=== PATIENT | female | born 1980 | race Hispanic/Latino ===

== ENCOUNTER 2018-08-16 16:02 | Emergency (ER) | payer BC ==
[2018-08-16 16:08] VITALS: RESP 16; O2SAT 98; BMI 31.8
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
[2018-08-16 17:34] LABS: BASO % 0.2 % (0.0-2.0); EOS % 0.4 % (0.0-4.0); HEMOGLOBIN 14.7 g/dL (12.0-16.0); LYMPH # 1.8 K/uL (1.0-4.3); MEAN CELL VOLUME 93.1 fl (81.0-99.0); MEAN CORPUSCULAR HEMOGLOBIN 31.2 pg (27.0-31.0); MEAN CORPUSCULAR HGB CONC 33.6 g/dL (33.0-37.0); MEAN PLATELET VOLUME 7.6 fl (7.2-11.7); MONO # 0.9 K/uL (0.0-0.8); MONO % 7.7 % (0.0-10.0); NEUT # 9.4 K/uL (1.8-7.0); NEUT % 76.7 % (50.0-75.0); RBC 4.71 Mil/uL (3.80-5.20); WHITE BLOOD COUNT 12.2 K/uL (4.8-10.8)
[2018-08-16 18:12] LABS: ALB/GLOB RATIO 1.3 (1.0-2.1); ALBUMIN 4.7 g/dL (3.5-5.0); ALT/SGPT 20 U/L (9-52); AST/SGOT 54 U/L (14-36); BLOOD UREA NITROGEN 17 mg/dl (7-17); CALCIUM 9.4 mg/dL (8.4-10.2); GFR NON-AFRICAN AMERICAN > 60
[2018-08-16 18:36] LABS: BARBITURATES, UR NEGATIVE (NEGATIVE); BENZODIAZEPINES, UR NEGATIVE (NEGATIVE); OPIATES, UR NEGATIVE (NEGATIVE); PHENCYCLIDINE, UR NEGATIVE (NEGATIVE)
[2018-08-16 20:30] LABS: SQUAMOUS EPITHIAL 2 /hpf (0-5); URINE BACTERIA RARE (<OCC); URINE BILIRUBIN NEGATIVE (NEGATIVE); URINE BLOOD SMALL (NEGATIVE); URINE CLARITY CLEAR (Clear); URINE COLOR STRAW (YELLOW); URINE GLUCOSE (UA) NEG (NEGATIVE); URINE LEUKOCYTE ESTERASE NEG Leu/uL (Negative); URINE PROTEIN NEGATIVE (NEGATIVE); URINE UROBILINOGEN 0.2-1.0 mg/dL (0.2-1.0)
--- NOTE | 2018-08-17 02:54 | ED PDOC ---
- Laboratory Results Result Diagrams: 08/16/18 17:30 08/16/18 17:30 Lab Results: Total Bilirubin 0.8 mg/dl (0.2-1.3) 08/16/18 17:30 AST 54 U/L (14-36) H 08/16/18 17:30 ALT 20 U/L (9-52) 08/16/18 17:30 Alkaline Phosphatase 92 U/L (38-126) 08/16/18: Total Protein 8.2 G/DL (6.3-8.2) 08/16/18 17: Albumin 4.7 g/dL (3.5-5.0) 08/16/18: Globulin 3.5 gm/dL (2.2-3.9) 08/16/18: Albumin/Globulin Ratio 1.3 (1.0-2.1) 08/16/18 17:30 Urine Color Straw (YELLOW) 08/16/18 20:00 Urine Clarity Clear (Clear) 08/16/18 20:00 Urine pH 6.0 (5.0-8.0) 08/16/18 20:00 Ur Specific [place] 1.008 (1.003-1.030) 08/16/18 20:00 Urine Protein Negative mg/dL (NEGATIVE) 08/16/18 20:00 Urine Glucose (UA) Neg mg/dL (NEGATIVE) 08/16/18 20:00 Urine Ketones 20 mg/dL (NEGATIVE) 08/16/18 20:00 Urine Blood Small (NEGATIVE) 08/16/18 20:00 Urine Nitrate Negative (NEGATIVE) 08/16/18 20:00 Urine Bilirubin Negative (NEGATIVE) 08/16/18 20:00 Urine Urobilinogen 0.2-1.0 mg/dL (0.2-1.0) 08/16/18 20:00 Ur Leukocyte Esterase Neg Carol/uL (Negative) 08/16/18 20:00 Urine RBC (Auto) < 1 /hpf (0-3) 08/16/18 20:00 Urine Microscopic WBC < 1 /hpf (0-5) 08/16/18 20:00 Ur Squamous Epith Cells 2 /hpf (0-5) 08/16/18 20:00 Urine Bacteria Rare (<OCC) 08/16/18 20:00 Urine POC: Negative - ECG O2 Sat by Pulse Oximetry: 98 (RA) - Progress ED Course And Treament: Case endorsed to underwriter from Anurag ELIAS pending [facility] [place] 1:30 Patient sleeping; no distress 2:50 Notified by crisis that patient evaluated by [facility] [place] and does not meet criteria for commitment. Patient is cleared for discharge as per Dr. Quinonez Patient requires no further intervention in the ED and is stable for discharge at this time Disposition - Clinical Impression Clinical Impression: Cannabis use disorder, mild, abuse - POA Present On Arrival: None - Disposition Disposition: Routine/Home Disposition Time: 02:54 Condition: STABLE Instructions: Marijuana Use and Addiction
[2018-08-17 04:23] VITALS: BP 134/86; PULSE 81; TEMP 98.1
--- NOTE | 2018-08-17 09:04 | CARD ---
APPROVED REPORT Date of service: 08/16/2018 EKG Measurement Heart [id number] ID [id number] <Conclusion> Sinus rhythm with short ID Right axis deviation Abnormal ECG
--- NOTE | 2018-08-17 09:09 | RAD ---
Date of service: 08/16/2018 HISTORY: Routine COMPARISON: No prior. FINDINGS: LUNGS: The lungs are well inflated and clear. PLEURA: No pleural effusions or pneumothorax. CARDIOVASCULAR: The heart is normal in size. No aortic atherosclerotic calcifications present. OSSEOUS STRUCTURES: Within normal limits for the patient's age. VISUALIZED UPPER ABDOMEN: Normal. OTHER FINDINGS: None. IMPRESSION: No active pulmonary disease.
== END 2018-08-17 02:50 | disposition home or self-care (01) ==
LOC: H.ER 16:02
DX: F12.10 Cannabis abuse, uncomplicated (principal); F43.10 Post-traumatic stress disorder, unspecified
CPT/HCPCS: 71045; 80053; 81003; 81025; 84443; 85025; 93005; 99282; G0480

== ENCOUNTER 2018-08-17 22:10 | Emergency (ER) | payer BC ==
[2018-08-17 22:10] VITALS: BMI 31.8
[2018-08-17 22:47] VITALS: BP 138/88; PULSE 78; RESP 18; TEMP 98; O2SAT 100
[2018-08-18] MEDS ORDERED: Bacitracin 500 Units/gm Oint Foilpak UD TOP STA (01:45)
--- NOTE | 2018-08-18 01:53 | ED PDOC ---
Lower Extremity Pain/Injury Time Seen by Provider: 08/17/18 23:53 Chief Complaint (Nursing): Lower Extremity Problem/Injury Chief Complaint (Provider): Lower Extremity Problem/Injury History Per: Patient History/Exam Limitations: no limitations Onset/Duration Of Symptoms: Days Additional Complaint(s): 37 years old female presents to ER for evaluation of rash to bottom of feet for the past several days. Patient reports she has been walking on her feet for days. She reports she lives in [facility] and trying to find a home. Patient has nowhere to stay tonight and denies fever, sore throat or history of diabetes. PMD: None provided Past Medical History Reviewed: Historical Data, Nursing Documentation, Vital Signs Vital Signs: Last Vital Signs Temp 98 F 08/17/18 22:45 Pulse 78 08/17/18 22:45 Resp 18 08/17/18 22:45 BP 138/88 08/17/18 22:45 Pulse Ox 100 08/17/18 22:45 - Medical History PMH: Post Traumatic Stress Disorder Denies: Diabetes, Hepatitis, HIV, HTN, Seizures, Sexually Transmitted Disease - Surgical History Surgical History: No Surg Hx - Family History Family History: States: Unknown Family Hx - Immunization History Hx Tetanus Toxoid Vaccination: No Hx Influenza Vaccination: No - Home Medications Home Medications: Ambulatory Orders Medication Instructions Recorded Amphetamine Salt Combination 40 mg PO DAILY 08/16/18 [Adderall] - Allergies Allergies/Adverse Reactions: Allergies Allergy/AdvReac Type Severity Reaction Status Date / Time No Known Allergies Allergy Verified 08/17/18 22:45 Review of Systems ROS Statement: Except As Marked, All Systems Reviewed And Found Negative Constitutional: Negative for: Fever ENT: Negative for: Throat Pain Skin: Positive for: Rash (to bottom of feet bilaterally) Physical Exam - Reviewed Nursing Documentation Reviewed: Yes Vital Signs Reviewed: Yes - Physical Exam Appears: Positive for: Well, No Acute Distress Head Exam: Positive for: ATRAUMATIC, NORMOCEPHALIC Skin: Positive for: Normal Color, Warm, Dry Eye Exam: Positive for: Normal appearance, EOMI, PERRL ENT: Positive for: Normal ENT Inspection Pulses-Dorsalis Pedis (L): 2+ Pulses-Dorsalis Pedis (R): 2+ Extremity: Positive for: Other (Bilateral plantar surface of feet with intact vesicles. No surrounding erythema) Neurological/Psych: Positive for: Awake, Alert, Oriented (x3) - ECG O2 Sat by Pulse Oximetry: 100 (RA) Pulse Ox Interpretation: Normal Medical Decision Making Medical Decision Making: Time: 42 Initial Plan: --Bacitracin OINT 1 applic --Tylenol 325 PO Scribe Attestation: Documented by Virginie Hennessy, acting as a scribe for LYNDON Dickerson. Provider Scribe Attestation: All medical record entries made by the Scribe were at my direction and personally dictated by me. I have reviewed the chart and agree that the record accurately reflects my personal performance of the history, physical exam, medical decision making, and the department course for this patient. I have also personally directed, reviewed, and agree with the discharge instructions and disposition. Disposition - Clinical Impression Clinical Impression: Friction blister - Patient ED Disposition Is Patient to be Admitted: No - Disposition Disposition: Routine/Home Disposition Time: 01:00 Condition: STABLE Additional Instructions: RETURN TO ED IMMEDIATELY IF SYMPTOMS WORSEN FIDELINA VILLA, thank you for letting us take care of you today. Your provider was Arin Donald MD and you were treated for SWOLLEN FEET. The emergency medical care you received today was directed at your acute symptoms. If you were prescribed any medication, please fill it and take as directed. It may take several days for your symptoms to resolve. Return to the Emergency Department if your symptoms worsen, do not improve, or if you have any other problems. Please contact your doctor or call one of the physicians/clinics you have been referred to that are listed on the Patient Visit Information form that is included in your discharge packet. Bring any paperwork you were given at discharge with you along with any medications you are taking to your follow up visit. Our treatment cannot replace ongoing medical care by a primary care provider outside of the emergency department. Thank you for allowing the [facility] team to be part of your care today. If you had an X-Ray or CT scan: A Radiologist will review the ED reading if any change in treatment is needed we will contact you. If you had a blood, urine, or wound culture: It will take several days for the results, if any change in treatment is needed we will contact you. If you had an STI test: It will take 48 hours for the results. Please call after 1 week if you have not heard back. Instructions: Blisters Forms: [facility] (Serbian)
== END 2018-08-18 06:53 | disposition home or self-care (01) ==
LOC: H.ER 22:10
DX: S90.829A Blister (nonthermal), unspecified foot, initial encounter (principal); X58.XXXA Exposure to other specified factors, initial encounter; Y92.89 Other specified places as the place of occurrence of the external cause